=== PATIENT | male | born 1955 | race Caucasian/White ===

== ENCOUNTER 2018-09-12 16:28 | Emergency (ER) | payer BC, OTHER ==
[~2018-09-12] VITALS: Ht 190.5 cm; Wt 99.8 kg
[2018-09-12] MEDS ORDERED: IV NORMAL SALINE 1,000ML 1,000 ML IV ONE (16:45)
[2018-09-12] MEDS ORDERED: PROCHLORPERAZINE 10 MG/2 ML VIAL. IV ONE (16:45)
--- NOTE | 2018-09-12 16:47 | PHYS DOC ---
Adult General Chief Complaint Chief Complaint: DIZZY/LIGHT HEADED [facility] HPI 63-year-old male presents with dizziness for the last 2 days. Yesterday the patient began have some mild dizziness with rapid head movements. He describes it as room spinning sensation. This symptom has increased today. He now has nausea but has had no vomiting. He went to the chiropractor just helped in the past. This did not help the symptoms at all. Patient has had no appetite today but otherwise is feeling fine. Denies fever or chills. He had this previously and had an ear infection at that time. He has no decreased hearing or ear pain at this time. Review of Systems Review of Systems Constitutional: Denies fever or chills [] Eyes: Denies change in visual acuity, redness, or eye pain [] HENT: Denies nasal congestion or sore throat [] Respiratory: Denies cough or shortness of breath [] Cardiovascular: No additional information not addressed in HPI [] GI: Denies abdominal pain, nausea, vomiting, bloody stools or diarrhea [] : Denies dysuria or hematuria [] Musculoskeletal: Denies back pain or joint pain [] Integument: Denies rash or skin lesions [] Neurologic: Denies headache, focal weakness or sensory changes. Dizziness [] Endocrine: Denies polyuria or polydipsia [] All other systems were reviewed and found to be within normal limits, except as documented in this note. Current Medications Current Medications Current Medications Medications (Trade) Dose Ordered Sig/Gavino Start Time Stop Time Status Last Admin Dose Admin Prochlorperazine Edisylate (Compazine) 10 mg 1X ONCE 09/12/18 16:45 09/12/18 16:46 Sodium Chloride 1,000 ml @ 1,000 mls/hr 1X ONCE 09/12/18 16:45 09/12/18 17:44 Allergies Allergies Allergies Coded Allergies Type Severity Reaction Last Updated Verified No Known Drug Allergies 10/05/13 No Physical Exam Physical Exam Constitutional: Well developed, well nourished, no acute distress, non-toxic appearance. [] HENT: Normocephalic, atraumatic, bilateral external ears normal, oropharynx moist, no oral exudates, nose normal. [] Eyes: PERRLA, EOMI, nystagmus of the right eye with cardinal gaze[] Neck: Normal range of motion, no tenderness, supple, no stridor. [] Cardiovascular:Heart rate regular rhythm, no murmur [] Lungs & Thorax: Bilateral breath sounds clear to auscultation [] Abdomen: Bowel sounds normal, soft, no tenderness, no masses, no pulsatile masses. [] Skin: Warm, dry, no erythema, no rash. [] Back: No tenderness, no CVA tenderness. [] Extremities: No tenderness, no cyanosis, no clubbing, ROM intact, no edema. [] Neurologic: Alert and oriented X 3, normal motor function, normal sensory function. [] Psychologic: Affect normal, judgement normal, mood normal. [] EKG EKG Sinus rhythm, rate 62, normal axis, no ST elevations or depressions.[] Radiology/Procedures Radiology/Procedures [] Impressions: EXAM: Head CT without contrast. HISTORY: Dizziness. TECHNIQUE: Computed tomographic images of the head were obtained without contrast. *One or more of the following individualized dose reduction techniques were utilized for this examination: 1. Automated exposure control. 2. Adjustment of the mA and/or kV according to patient size. 3. Use of iterative reconstruction technique. COMPARISON: None. FINDINGS: There is no acute or subacute extra-axial or intraparenchymal hemorrhage. There is no mass effect or midline shift. There is no hydrocephalus. There are areas of decreased attenuation within the cerebral white matter, nonspecific and likely related to chronic small vessel disease. The orbits are unremarkable. There is suspected osteoma or ossified mucous retention cyst within the right frontal sinus. The mastoid air cells are clear. IMPRESSION: No acute intracranial findings. There is made that MRI is more sensitive for acute infarction. Electronically signed by: Chely Hodges MD (09/12/2018 5:45 PM) [facility] DICTATED AND SIGNED BY: CHELY HODGES MD DATE: 09/12/18 1744 CC: FRANCOIS MULLEN DO; TOY ROCHA MD ~ Course & Med Decision Making Course & Med Decision Making Pertinent Labs and Imaging studies reviewed. (See chart for details) Patient's labs are unremarkable. His urine is unremarkable. His head CT. He does have some nystagmus of the right eye with cardinal gaze. I have tried Compazine. I will additionally given meclizine. I do not see central cause for the patient's dizziness. This is likely positional vertigo. Meclizine did help the patient significantly. I will discharge him on a trial prescription of the same medication. He will follow-up with his PCP as needed. He is stable for discharge at this time. I was able to track layer a consider amount of earwax from both ears. I used a curet as well as alligator forceps for manual removal. I complete visualization of the tympanic membranes after removal. They were within normal limits. He tolerated the procedure well. [] Dragon Disclaimer Dragon Disclaimer This electronic medical record was generated, in whole or in part, using a voice recognition dictation system. Departure Departure: Referrals: TOY ROCHA MD (PCP) Scripts Meclizine Hcl (MECLIZINE HCL) 12.5 Mg Tablet 1 TAB PO TID PRN for DIZZINESS, #30 TAB Prov: FRANCOIS MULLEN DO 09/12/18 FRANCOIS MULLEN DO Sep 12, 2018 16:47
[2018-09-12 17:10] LABS: BASO % 0 % (0-3); EOS % 0 % (0-3); HEMATOCRIT 43.1 % (39.0-53.0); HEMOGLOBIN 14.5 g/dL (13.0-17.5); LYMPH # 1.5 x10^3/uL (1.0-4.8); LYMPH % 26 % (24-48); MEAN CORPUSCULAR HEMOGLOBIN 29 pg (25-35); MEAN CORPUSCULAR HGB CONC 34 g/dL (31-37); MEAN CORPUSCULAR VOLUME 86 fL (79-100); MONO # 0.5 x10^3/uL (0.0-1.1); MONO % 8 % (0-9); NEUT # 3.7 x10^3uL (1.8-7.7); NEUT % 65 % (31-73); PLATELET COUNT 164 x10^3/uL (140-400); RED BLOOD COUNT 4.99 x10^6/uL (4.30-5.70); WHITE BLOOD COUNT 5.7 x10^3/uL (4.0-11.0)
--- NOTE | 2018-09-12 17:12 | EKG ---
[address] [address] Test Date: 2018-09-12 Test Time: 16:48:37 Pat Name: DIPTI JIMENEZ Department: Room: Gender: M Prize Fighter: : 1955 Requested By: FRANCOIS MULLEN Order Number: [id number] Reading MD: Yohan Birmingham MD Measurements Intervals [place] Rate: 62 P: 34 RI: 164 QRS: 15 QRSD: 94 T: 43 QT: 422 QTc: 431 Interpretive Statements SINUS RHYTHM Electronically Signed On 09-14-2018 8:38:10 [facility]AMAN by Yohan Birmingham MD
[2018-09-12 17:24] LABS: ALBUMIN 3.8 g/dL (3.4-5.0); ALBUMIN/GLOBULIN RATIO 1.2 (1.0-1.7); CREATININE 0.9 mg/dL (0.7-1.3); POTASSIUM 3.9 mmol/L (3.5-5.1); TOTAL BILIRUBIN 0.4 mg/dL (0.2-1.0); TOTAL PROTEIN 7.1 g/dL (6.4-8.2)
[2018-09-12 17:26] LABS: BILIRUBIN,URINE NEG (NEG); CLARITY,URINE CLEAR; COLOR,URINE YELLOW; GLUCOSE,URINE NEG (NEG); NITRITE,URINE NEG (NEG); UROBILINOGEN,URINE 0.2 mg/dL (0.2 mg/dL)
[2018-09-12 17:27] LABS: AMORPHOUS SEDIMENT,UR PRESENT /HPF; BACTERIA,URINE 0 /HPF (0-FEW); RBC,URINE RARE /HPF (0-2); SQUAMOUS EPITHELIAL CELL,UR OCC /LPF; WBC,URINE OCC /HPF (0-4)
--- NOTE | 2018-09-12 17:49 | RAD ---
EXAM: Head CT without contrast. HISTORY: Dizziness. TECHNIQUE: Computed tomographic images of the head were obtained without contrast. *One or more of the following individualized dose reduction techniques were utilized for this examination: 1. Automated exposure control. 2. Adjustment of the mA and/or kV according to patient size. 3. Use of iterative reconstruction technique. COMPARISON: None. FINDINGS: There is no acute or subacute extra-axial or intraparenchymal hemorrhage. There is no mass effect or midline shift. There is no hydrocephalus. There are areas of decreased attenuation within the cerebral white matter, nonspecific and likely related to chronic small vessel disease. The orbits are unremarkable. There is suspected osteoma or ossified mucous retention cyst within the right frontal sinus. The mastoid air cells are clear. IMPRESSION: No acute intracranial findings. There is made that MRI is more sensitive for acute infarction. Electronically signed by: Chely Hodges MD (09/12/2018 5:45 PM) [facility]
[2018-09-12] MEDS ORDERED: MECLIZINE 12.5 MG TABLET. PO STA (18:08)
[2018-09-12] MEDS ORDERED: MECL12.52 PO (18:31)
[2018-09-12 18:35] VITALS: BP 153/84
== END 2018-09-12 18:38 | disposition home or self-care (01) ==
LOC: ER 16:28
DX: R42 Dizziness and giddiness (principal); H55.09 Other forms of nystagmus; R00.0 Tachycardia, unspecified
CPT/HCPCS: 36415; 69210; 70450; 80053; 81001; 85025; 93005; 96361; 96374; 99284; J0780; J8597; J7030